=== PATIENT | female | born 1970 | race Caucasian/White ===

== ENCOUNTER 2021-05-19 10:28 | Inpatient (IN) | payer BC ==
[~2021-05-19] VITALS: Ht 165.1 cm; Wt 166.0 kg
[2021-05-19 12:00] LABS: BASOPHILS # (AUTO) 0.1 (0.0-0.1); BASOPHILS % 0.9 % (0.0-1.0); EOSINOPHILS # (AUTO) 0.1 (0.0-0.4); HEMOGLOBIN 11.4 g/dL (12.0-16.0); LYMPHOCYTES # (AUTO) 1.1 (1.0-3.2); LYMPHOCYTES % 15.2 % (18.0-39.1); MEAN CORPUSCULAR HEMOGLOBIN 22.8 pg (28-32); MEAN CORPUSCULAR HGB CONC 28.5 g/dL (31-35); MEAN CORPUSCULAR VOLUME 80.2 fL (81-99); MONOCYTES # (AUTO) 0.4 (0.2-0.8); MONOCYTES % 6.1 % (4.4-11.3); NEUTROPHILS # (AUTO) 5.3 (2.1-6.9); NEUTROPHILS % 76.1 % (38.7-80.0); PLATELET COUNT 299 x10e3/uL (140-360); RED BLOOD COUNT 4.99 x10e6/uL (3.6-5.1); RED CELL DISTRIBUTION WIDTH 18.7 % (11.7-14.4)
[2021-05-19] MEDS ORDERED: SODIUM CHLORIDE 0.9% 50ML 50 ML ONE ×2 (12:03→14:20)
[2021-05-19] MEDS ORDERED: IOPAMIDOL 370 MG/ML 200 ML INFUS..BTL INJ ONE (12:03)
[2021-05-19] MEDS ORDERED: FUROSEMIDE INJ 10 MG/ML 4 ML VIAL IV ONE (13:00)
[2021-05-19] MEDS ORDERED: METOPROLOL TARTRATE INJ 1 MG/ML VIAL IV ONE (13:00)
[2021-05-19] MEDS ORDERED: ENOXAPARIN SODIUM INJ 100 MG/ML SYR SC STA (13:07)
[2021-05-19] MEDS ORDERED: ENOXAPARIN SODIUM INJ 100 MG/ML SYR SC ONE (13:34)
[2021-05-19] MEDS ORDERED: FUROSEMIDE INJ 10 MG/ML 4 ML VIAL ONE (13:34)
[2021-05-19] MEDS ORDERED: METOPROLOL TARTRATE INJ 1 MG/ML VIAL ONE (13:34)
[2021-05-19] MEDS ORDERED: CEFTRIAXONE 1 GM in SODIUM CHLORIDE 0.9% 50ML 50 ML IV ONE (13:45)
[2021-05-19] MEDS ORDERED: CEFTRIAXONE 1 GM VIAL ONE (14:20)
[2021-05-19] MEDS ORDERED: SODIUM CHLORIDE 0.9% 250ML 250 ML ONE (14:20)
[2021-05-19] MEDS ORDERED: SODIUM CHLORIDE FLUSH 10 ML SYR INJ PRN (15:45)
[2021-05-19] MEDS ORDERED: ONDANSETRON HCL INJ 2MG/ML 2ML 2 MG/ML VIAL IV PRN (16:15)
[2021-05-19] MEDS ORDERED: METOPROLOL TARTRATE INJ 1 MG/ML VIAL IV PRN (16:15)
[2021-05-19 16:20] VITALS: BP 137/101
[2021-05-19 18:00] VITALS: BP 137/101
[2021-05-19 19:56] VITALS: BP 141/110
[2021-05-19 20:02] VITALS: BP 141/110
[2021-05-19] MEDS: METOPROLOL TARTRATE 50 MG TAB PO SCH (20:46)
[2021-05-20 00:02] VITALS: BP 123/83
[2021-05-20 04:00] VITALS: BP 139/91
[2021-05-20 05:36] LABS: BASOPHILS # (AUTO) 0.1 (0.0-0.1); BASOPHILS % 0.7 % (0.0-1.0); EOSINOPHILS # (AUTO) 0.1 (0.0-0.4); EOSINOPHILS % 1.8 % (0.0-6.0); HEMATOCRIT 37.5 % (34.2-44.1); HEMOGLOBIN 10.3 g/dL (12.0-16.0); LYMPHOCYTES % 14.4 % (18.0-39.1); MEAN CORPUSCULAR HEMOGLOBIN 22.9 pg (28-32); MEAN CORPUSCULAR HGB CONC 27.5 g/dL (31-35); MEAN CORPUSCULAR VOLUME 83.3 fL (81-99); MONOCYTES # (AUTO) 0.8 (0.2-0.8); MONOCYTES % 11.4 % (4.4-11.3); NEUTROPHILS % 71.3 % (38.7-80.0); PLATELET COUNT 268 x10e3/uL (140-360); RED CELL DISTRIBUTION WIDTH 18.4 % (11.7-14.4)
[2021-05-20 06:34] LABS: ALBUMIN 3.5 g/dL (3.5-5.0); ANION GAP 12.2 mmol/L (8-16); BILIRUBIN,DIRECT 1.1 mg/dL (0.0-0.5); CALCIUM 9.5 mg/dL (8.4-10.2); CREATININE, SERUM 1.14 mg/dL (0.57-1.11); MAGNESIUM 2.1 MG/DL (1.3-2.1); POTASSIUM 4.2 mmol/L (3.5-5.1)
[2021-05-20 07:16] LABS: THYROID STIMULATING HORMONE 2.609 uIU/mL (0.350-4.940)
[2021-05-20 07:33] VITALS: BP 122/83
[2021-05-20 07:34] LABS: INR 1.16; PROTHROMBIN TIME 15.8 seconds (11.9-14.5)
[2021-05-20 07:35] LABS: PARTIAL THROMBOPLASTIN TIME 32.3 seconds (23.8-35.5)
[2021-05-20] MEDS: METOPROLOL TARTRATE 50 MG TAB PO SCH ×2 (09:18→20:29)
[2021-05-20] MEDS: CEFTRIAXONE 1 GM in SODIUM CHLORIDE 0.9% 50ML 50 ML IV SCH (09:18)
[2021-05-20] MEDS ORDERED: SODIUM CHLORIDE 0.9% 250ML 250 ML ONE (09:38)
[2021-05-20] MEDS: FUROSEMIDE INJ 10 MG/ML 2 ML VIAL IV SCH ×2 (12:30→17:37)
[2021-05-20] MEDS ORDERED: METOLAZONE 5 MG TAB PO ONE (16:45)
[2021-05-20] MEDS ORDERED: ENOXAPARIN SOD INJ 40 MG/0.4 ML SYR SC SCH (17:00)
[2021-05-21] VITALS (7 sets, daily range): BP systolic 95–142; BP diastolic 65–99
[2021-05-21 05:02] LABS: BASOPHILS # (AUTO) 0.1 (0.0-0.1); BASOPHILS % 0.8 % (0.0-1.0); EOSINOPHILS # (AUTO) 0.1 (0.0-0.4); EOSINOPHILS % 1.1 % (0.0-6.0); HEMATOCRIT 37.1 % (34.2-44.1); HEMOGLOBIN 10.4 g/dL (12.0-16.0); LYMPHOCYTES # (AUTO) 1.1 (1.0-3.2); LYMPHOCYTES % 17.1 % (18.0-39.1); MEAN CORPUSCULAR HEMOGLOBIN 23.2 pg (28-32); MEAN CORPUSCULAR VOLUME 82.8 fL (81-99); MONOCYTES # (AUTO) 0.8 (0.2-0.8); MONOCYTES % 12.6 % (4.4-11.3); NEUTROPHILS # (AUTO) 4.4 (2.1-6.9); NEUTROPHILS % 67.9 % (38.7-80.0); PLATELET COUNT 244 x10e3/uL (140-360); RED BLOOD COUNT 4.48 x10e6/uL (3.6-5.1); RED CELL DISTRIBUTION WIDTH 17.8 % (11.7-14.4)
[2021-05-21 05:23] LABS: ALBUMIN 3.5 g/dL (3.5-5.0); ALBUMIN/GLOBULIN RATIO 0.8 (0.8-2.0); ANION GAP 13.9 mmol/L (8-16); CALCIUM 9.4 mg/dL (8.4-10.2); CREATININE, SERUM 1.29 mg/dL (0.57-1.11); POTASSIUM 3.9 mmol/L (3.5-5.1)
[2021-05-21] MEDS: CEFTRIAXONE 1 GM in SODIUM CHLORIDE 0.9% 50ML 50 ML IV SCH (08:49)
[2021-05-21] MEDS: AZITHROMYCIN 250 MG TAB PO SCH (08:49)
[2021-05-21] MEDS: FUROSEMIDE INJ 10 MG/ML 2 ML VIAL IV SCH ×2 (08:49→17:17)
[2021-05-21] MEDS: METOPROLOL TARTRATE 50 MG TAB PO SCH (08:49)
[2021-05-21] MEDS: APIXABAN 5 MG TABLET PO SCH ×2 (13:37→17:17)
[2021-05-21] MEDS ORDERED: ONDANSETRON HCL 4 MG ORAL DISINTEGRATING TAB PO PRN (14:15)
[2021-05-21] MEDS: ACETAMINOPHEN 325 MG TAB PO PRN ×2 (17:16→20:41)
[2021-05-21] MEDS: DRONEDARONE 400 MG TAB PO SCH (17:17)
[2021-05-21] MEDS: METOPROLOL TARTRATE 25 MG TAB PO SCH (20:36)
[2021-05-22] VITALS (8 sets, daily range): BP systolic 109–135; BP diastolic 56–93
[2021-05-22 04:59] LABS: BASOPHILS % 0.7 % (0.0-1.0); EOSINOPHILS # (AUTO) 0.2 (0.0-0.4); EOSINOPHILS % 3.4 % (0.0-6.0); HEMATOCRIT 34.5 % (34.2-44.1); HEMOGLOBIN 9.9 g/dL (12.0-16.0); LYMPHOCYTES # (AUTO) 1.3 (1.0-3.2); LYMPHOCYTES % 22.5 % (18.0-39.1); MEAN CORPUSCULAR HEMOGLOBIN 22.8 pg (28-32); MEAN CORPUSCULAR HGB CONC 28.7 g/dL (31-35); MEAN CORPUSCULAR VOLUME 79.5 fL (81-99); MONOCYTES # (AUTO) 0.7 (0.2-0.8); MONOCYTES % 11.1 % (4.4-11.3); NEUTROPHILS # (AUTO) 3.6 (2.1-6.9); PLATELET COUNT 253 x10e3/uL (140-360); RED BLOOD COUNT 4.34 x10e6/uL (3.6-5.1); RED CELL DISTRIBUTION WIDTH 17.9 % (11.7-14.4)
[2021-05-22 05:22] LABS: ALBUMIN 3.4 g/dL (3.5-5.0); ALBUMIN/GLOBULIN RATIO 0.8 (0.8-2.0); ANION GAP 14.9 mmol/L (8-16); CALCIUM 9.5 mg/dL (8.4-10.2); CREATININE, SERUM 1.24 mg/dL (0.57-1.11); POTASSIUM 3.9 mmol/L (3.5-5.1)
[2021-05-22] MEDS: AZITHROMYCIN 250 MG TAB PO SCH (09:23)
[2021-05-22] MEDS: METOPROLOL TARTRATE 25 MG TAB PO SCH ×2 (09:23→20:23)
[2021-05-22] MEDS: APIXABAN 5 MG TABLET PO SCH ×2 (09:23→17:05)
[2021-05-22] MEDS: DRONEDARONE 400 MG TAB PO SCH ×2 (09:23→17:05)
[2021-05-22] MEDS: CEFTRIAXONE 1 GM in SODIUM CHLORIDE 0.9% 50ML 50 ML IV SCH (09:23)
[2021-05-22] MEDS: FUROSEMIDE INJ 10 MG/ML 2 ML VIAL IV SCH ×2 (09:23→17:05)
[2021-05-23] VITALS (8 sets, daily range): BP systolic 117–136; BP diastolic 55–82
[2021-05-23 07:14] LABS: BASOPHILS % 0.6 % (0.0-1.0); EOSINOPHILS # (AUTO) 0.2 (0.0-0.4); EOSINOPHILS % 4.3 % (0.0-6.0); HEMATOCRIT 34.3 % (34.2-44.1); HEMOGLOBIN 9.9 g/dL (12.0-16.0); LYMPHOCYTES # (AUTO) 0.9 (1.0-3.2); LYMPHOCYTES % 18.2 % (18.0-39.1); MEAN CORPUSCULAR HEMOGLOBIN 22.7 pg (28-32); MEAN CORPUSCULAR HGB CONC 28.9 g/dL (31-35); MEAN CORPUSCULAR VOLUME 78.7 fL (81-99); MONOCYTES # (AUTO) 0.6 (0.2-0.8); MONOCYTES % 10.9 % (4.4-11.3); NEUTROPHILS # (AUTO) 3.4 (2.1-6.9); NEUTROPHILS % 65.8 % (38.7-80.0); PLATELET COUNT 239 x10e3/uL (140-360); RED BLOOD COUNT 4.36 x10e6/uL (3.6-5.1); RED CELL DISTRIBUTION WIDTH 17.8 % (11.7-14.4)
[2021-05-23 07:52] LABS: ANION GAP 11.6 mmol/L (8-16); CALCIUM 9.5 mg/dL (8.4-10.2); CREATININE, SERUM 1.23 mg/dL (0.57-1.11); MAGNESIUM 1.9 MG/DL (1.3-2.1); POTASSIUM 3.6 mmol/L (3.5-5.1)
[2021-05-23] MEDS: DRONEDARONE 400 MG TAB PO SCH ×2 (08:00→17:54)
[2021-05-23 08:08] LABS: % IRON SATURATION 8 % (15-50); IRON 38 ug/dL (50-170); LIPASE 33 U/L (8-78); TOTAL IRON BINDING CAPACITY 494 ug/dL (261-478); TRANSFERRIN 353 mg/dL (180-382)
[2021-05-23] MEDS: ACETAZOLAMIDE SODIUM 500 MG/VIAL IV SCH ×3 (08:45→21:55)
[2021-05-23] MEDS ORDERED: ACETAZOLAMIDE SODIUM 500 MG/VIAL IV ONE (08:45)
[2021-05-23] MEDS: FUROSEMIDE INJ 10 MG/ML 2 ML VIAL IV SCH ×2 (09:00→17:53)
[2021-05-23] MEDS: METOPROLOL TARTRATE 25 MG TAB PO SCH ×2 (09:00→21:55)
[2021-05-23] MEDS: AZITHROMYCIN 250 MG TAB PO SCH (09:00)
[2021-05-23] MEDS: CEFTRIAXONE 1 GM in SODIUM CHLORIDE 0.9% 50ML 50 ML IV SCH (09:00)
[2021-05-23] MEDS: APIXABAN 5 MG TABLET PO SCH ×2 (09:00→17:53)
[2021-05-23] MEDS: IRON SUCROSE 100 MG in SODIUM CHLORIDE 0.9% 100 ML 100 ML IV SCH (09:30)
[2021-05-24] VITALS (7 sets, daily range): BP systolic 108–133; BP diastolic 64–86
[2021-05-24 06:13] LABS: BASOPHILS # (AUTO) 0.1 (0.0-0.1); BASOPHILS % 1.1 % (0.0-1.0); EOSINOPHILS # (AUTO) 0.3 (0.0-0.4); EOSINOPHILS % 6.6 % (0.0-6.0); HEMATOCRIT 40.3 % (34.2-44.1); HEMOGLOBIN 11.1 g/dL (12.0-16.0); LYMPHOCYTES % 21.2 % (18.0-39.1); MEAN CORPUSCULAR HEMOGLOBIN 23.3 pg (28-32); MEAN CORPUSCULAR HGB CONC 27.5 g/dL (31-35); MEAN CORPUSCULAR VOLUME 84.5 fL (81-99); MONOCYTES # (AUTO) 0.5 (0.2-0.8); MONOCYTES % 11.6 % (4.4-11.3); NEUTROPHILS # (AUTO) 2.7 (2.1-6.9); NEUTROPHILS % 58.8 % (38.7-80.0); PLATELET COUNT 136 x10e3/uL (140-360); RED BLOOD COUNT 4.77 x10e6/uL (3.6-5.1); RED CELL DISTRIBUTION WIDTH 18.3 % (11.7-14.4)
[2021-05-24 06:51] LABS: ANION GAP 13.6 mmol/L (8-16); CALCIUM 9.5 mg/dL (8.4-10.2); CREATININE, SERUM 1.22 mg/dL (0.57-1.11); MAGNESIUM 2.2 MG/DL (1.3-2.1); POTASSIUM 3.6 mmol/L (3.5-5.1)
[2021-05-24] MEDS: DRONEDARONE 400 MG TAB PO SCH ×2 (08:05→17:02)
[2021-05-24] MEDS: AZITHROMYCIN 250 MG TAB PO SCH (09:12)
[2021-05-24] MEDS: APIXABAN 5 MG TABLET PO SCH ×2 (09:12→17:02)
[2021-05-24] MEDS: METOPROLOL TARTRATE 25 MG TAB PO SCH ×2 (09:12→20:20)
[2021-05-24] MEDS: FUROSEMIDE INJ 10 MG/ML 2 ML VIAL IV SCH ×2 (09:12→17:02)
[2021-05-24] MEDS: CEFTRIAXONE 1 GM in SODIUM CHLORIDE 0.9% 50ML 50 ML IV SCH (09:12)
[2021-05-24] MEDS: IRON SUCROSE 100 MG in SODIUM CHLORIDE 0.9% 100 ML 100 ML IV SCH (09:14)
[2021-05-25] VITALS: BP 111/66
[2021-05-25 04:00] VITALS: BP 116/69
[2021-05-25 06:02] LABS: BASOPHILS # (AUTO) 0.1 (0.0-0.1); EOSINOPHILS # (AUTO) 0.2 (0.0-0.4); EOSINOPHILS % 4.8 % (0.0-6.0); HEMATOCRIT 34.6 % (34.2-44.1); HEMOGLOBIN 9.9 g/dL (12.0-16.0); LYMPHOCYTES # (AUTO) 1.1 (1.0-3.2); LYMPHOCYTES % 21.2 % (18.0-39.1); MEAN CORPUSCULAR HEMOGLOBIN 22.9 pg (28-32); MEAN CORPUSCULAR HGB CONC 28.6 g/dL (31-35); MEAN CORPUSCULAR VOLUME 79.9 fL (81-99); MONOCYTES # (AUTO) 0.5 (0.2-0.8); MONOCYTES % 10.2 % (4.4-11.3); NEUTROPHILS # (AUTO) 3.1 (2.1-6.9); NEUTROPHILS % 62.4 % (38.7-80.0); PLATELET COUNT 224 x10e3/uL (140-360); RED BLOOD COUNT 4.33 x10e6/uL (3.6-5.1); RED CELL DISTRIBUTION WIDTH 18.3 % (11.7-14.4)
[2021-05-25 06:31] LABS: ANION GAP 11.6 mmol/L (8-16); CALCIUM 9.4 mg/dL (8.4-10.2); CREATININE, SERUM 1.21 mg/dL (0.57-1.11); POTASSIUM 3.6 mmol/L (3.5-5.1)
[2021-05-25 08:27] VITALS: BP 119/80
[2021-05-25] MEDS: FUROSEMIDE INJ 10 MG/ML 2 ML VIAL IV SCH (08:38)
[2021-05-25] MEDS: APIXABAN 5 MG TABLET PO SCH ×2 (08:38→16:49)
[2021-05-25] MEDS: METOPROLOL TARTRATE 25 MG TAB PO SCH (08:38)
[2021-05-25] MEDS: DRONEDARONE 400 MG TAB PO SCH ×2 (08:38→16:50)
[2021-05-25] MEDS: AZITHROMYCIN 250 MG TAB PO SCH (08:39)
[2021-05-25] MEDS: IRON SUCROSE 100 MG in SODIUM CHLORIDE 0.9% 100 ML 100 ML IV SCH (10:00)
[2021-05-25] MEDS ORDERED: LOPRESSOR25 MG PO (10:49)
[2021-05-25] MEDS ORDERED: ELIQUIS5 MG PO (10:49)
[2021-05-25] MEDS ORDERED: LASIX20 MG PO (10:49)
[2021-05-25] MEDS ORDERED: MULTAQ 400MG T400 MG PO (10:49)
[2021-05-25] MEDS ORDERED: FUROSEMIDE 40 MG TAB PO SCH (17:00)
[2021-05-26] MEDS ORDERED: AMIODARONE HCL200 MG PO (20:30)
== END 2021-05-25 17:31 | disposition home or self-care (01) | DRG 177 ==
LOC: FSED 10:53 → ERHOLD 15:36 → MED/SURG2 16:15
PROVIDERS: ADMIT Internal Medicine; ATTEND Internal Medicine
DX: U07.1 COVID-19 (principal); J96.01 Acute respiratory failure with hypoxia; I50.31 Acute diastolic (congestive) heart failure; J15.9 Unspecified bacterial pneumonia; I26.09 Other pulmonary embolism with acute cor pulmonale; N39.0 Urinary tract infection, site not specified; Z68.44 Body mass index [BMI] 60.0-69.9, adult; E66.2 Morbid (severe) obesity with alveolar hypoventilation; I48.19 Other persistent atrial fibrillation; I11.0 Hypertensive heart disease with heart failure; K80.80 Other cholelithiasis without obstruction; D50.9 Iron deficiency anemia, unspecified; I49.9 Cardiac arrhythmia, unspecified
CPT/HCPCS: 36415; 71045; 71260; 76705; 80048; 80053; 80076; 82553; 83540; 83690; 83735; 83880; 84443; 84466; 84484; 85025; 85379; 85610; 85730; 87086; 87186; 87400; 93306; 93970; 94799; 99284; J0456; J0696; J1650; J1756; J1940; J7050; Q9967; U0002